=== PATIENT | female | born 1940 | race Caucasian/White ===

== ENCOUNTER 2018-04-11 06:41 | Day surgery (SDC) | payer OTHER ==
[2018-04-11] MEDS ORDERED: NALOXONE HCL 0.4 MG/ML INJ IVP PRN (07:09)
[2018-04-11] MEDS ORDERED: PROTAMINE SULFATE 50 MG/5 ML VIAL IVP PRN (07:09)
[2018-04-11] MEDS ORDERED: MIDAZOLAM 2 MG/2 ML VIAL IVP PRN (07:09)
[2018-04-11] MEDS ORDERED: fentaNYL 100 MCG/2 ML INJ IVP PRN (07:09)
[2018-04-11] MEDS ORDERED: ALTEPLASE 2 MG VIAL IVP PRN (07:09)
[2018-04-11] MEDS ORDERED: MEPERIDINE 25 MG/ML SYR IVP PRN (07:09)
[2018-04-11] MEDS ORDERED: FLUMAZENIL 0.5 MG/5 ML MDV IVP PRN (07:09)
[2018-04-11] MEDS ORDERED: HEPARIN 10,000 UNIT/10 ML MDV (1,000 UNIT/ML) IVP PRN (07:09)
[2018-04-11] MEDS ORDERED: NS 1,000 ML IV SCH (07:15)
[2018-04-11 07:51] LABS: PROTIME(PATIENT) 13.4 SEC (12.0-15.0)
[2018-04-11] MEDS ORDERED: MIDAZOLAM 2 MG/2 ML VIAL ONE (08:34)
[2018-04-11] MEDS ORDERED: fentaNYL 100 MCG/2 ML INJ ONE (08:34)
[2018-04-11] MEDS ORDERED: FLUMAZENIL 0.5 MG/5 ML MDV IVP ONE (08:34)
[2018-04-11] MEDS ORDERED: NALOXONE HCL 0.4 MG/ML INJ ONE (08:34)
--- NOTE | 2018-04-11 08:35 | PDPROPOC ---
Sedation Plan of Care Sedation Plan of Care: vital signs stable, mental status noted, patient educated of risks, benefits, alternatives, patient can tolerate sedation ASA Classification: ASA 2 Planned drugs: fentanyl, midazolam Mallampati Score: Class 3 Mallampati Reference Image:
--- NOTE | 2018-04-11 08:38 | PDGENHP ---
History & Physical Chief Complaint: LUE AVF with digital wound, r/o steal History of Present Illness: longstanding ESRD AVF Relevant Physical Exam: good pulses Cardiorespiratory Assessment: rrr, nl wob
[2018-04-11] MEDS ORDERED: IOPAMIDOL (ISOVUE-300) 100 ML BTL ONE (09:39)
[2018-04-11] MEDS ORDERED: LIDOCAINE 1% 300 MG/30 ML SDV ONE (10:04)
[2018-04-11 10:27] VITALS: BP 111/52
--- NOTE | 2018-04-11 10:31 | PDRADPN ---
Radiology Procedure Note Date of Procedure: 04/11/18 Radiologist: Bryan Pedraza Anesthesia: IV Sedation, Local (Specify) Pre-op Diagnosis: LUE avf with suspected steal, digital ulcer Post-op Diagnosis: same Indication: confirm suspected steal Procedure: LUE angio Finding(s): rapid flow across AV anastamosis with poor antegrade arterial flow to the downstream radial artery. No visible ulnar flow. Repeat angio with manually occluded venous outflow, significantly improved radial inflow and visible ulnar inflow. Findings c/w steal phenomenon. Good right [employer] closure. Inf/Abcess present in the surg proc area at time of surgery?: No EBL: Minimal Complications: none
== END 2018-04-11 15:50 | disposition home or self-care (01) ==
LOC: FIMAGING 06:41
PROVIDERS: ATTEND Internal Medicine Nephrology
PROC: B31H1ZZ Fluoroscopy of Right Upper Extremity Arteries using Low Osmolar Contrast (ICD-10-PCS; principal; 2018-04-11)
PROC: 04HK33Z Insertion of Infusion Device into Right Femoral Artery, Percutaneous Approach (ICD-10-PCS; principal; 2018-04-11)
PROC: B41F1ZZ Fluoroscopy of Right Lower Extremity Arteries using Low Osmolar Contrast (ICD-10-PCS; principal; 2018-04-11)
DX: T82.898A Other specified complication of vascular prosthetic devices, implants and grafts, initial encounter (principal); L98.499 Non-pressure chronic ulcer of skin of other sites with unspecified severity; N18.6 End stage renal disease; Z99.2 Dependence on renal dialysis
CPT/HCPCS: 36247; 75710; 99152; 99153; C1769; C1894; C1760; J1644; J2250; J2310; J3010; Q9967